=== PATIENT | female | born 1955 | race Caucasian/White ===

== ENCOUNTER → 2020-05-12 | Outpatient (CLI) | payer BC, OTHER ==
[~2020-05-12] MED LIST: CALTRATE 600 +1 EAC1 PO; CRESTOR10 MG PO; DIOVAN160 MG PO; FENOFIBRATE PO; FOLIC ACID PO; GLIPIZIDE5 MG PO; IRON PO; JARDIANCE10 MG PO; MAGNESIUM PO; METFORMIN HCL500 MG PO; METOPROLOL TART25 MG PO; VASCEPA1 GM PO; VITAMIN D PO
== END ==
LOC: RAD 05:00 → EDSTATUS 05-15 09:00
PROVIDERS: ATTEND Internal Medicine Gastroenterology
DX: Z01.818 Encounter for other preprocedural examination (principal); Z12.11 Encounter for screening for malignant neoplasm of colon; Z86.010 Personal history of colon polyps; R19.7 Diarrhea, unspecified; Z53.8 Procedure and treatment not carried out for other reasons; Z11.59 Encounter for screening for other viral diseases
CPT/HCPCS: 93005; U0002

== ENCOUNTER → 2020-08-14 | Day surgery (SDC) | payer BC, OTHER ==
[~2020-08-14] MED LIST changes: +EPHEDRINE SULFATE INJ 50 MG/ML VIAL ONE; +FENTANYL CITRATE/PF 100MCG/2 ML INJ ONE; +LIDOCAINE HCL 2% LOCAL INJ 5 ML SDV VIAL INJ ONE; +MIDAZOLAM HCL 2 MG/2 ML VIAL ONE; +PROPOFOL IV EMULSION 10 MG/ML 20 ML VIAL ONE; +SIMETHICONE 40 MG/0.6 ML BTL ONE; +TRULICITY0.75 MG/0. SQ
[2020-08-14 11:10] VITALS: BP 119/68
--- NOTE | 2020-08-14 13:09 | Operative Report ---
DATE OF PROCEDURE: 08/14/2020 SURGEON: Ronald Porter MD PROCEDURE PERFORMED: Colonoscopy. PREOPERATIVE DIAGNOSIS: History of colon polyps. POSTOPERATIVE DIAGNOSIS: Colon polyps. PREOPERATIVE MEDICATIONS: Consisted of general anesthesia. DESCRIPTION OF PROCEDURE: Using an Latio video colonoscope was inserted in the patient's rectum and advanced without difficulty to the level of cecum. The colon was studied from that level back down to the rectum. In the proximal ascending colon was a 1 cm size adenomatous polyp, it was removed with electrical snare cautery. In the transverse colon we had a 4 mm benign polyp which was removed with hot biopsy forceps and down the sigmoid colon we had a 4 mm colonic polyp which was removed with hot biopsy forceps. The colonoscope was withdrawn from the patient's rectum and the procedure was ended. Ronald Porter MD SAF/MODL /[id number]
== END | disposition home or self-care (01) ==
LOC: OR 06:37
PROVIDERS: ATTEND Internal Medicine Gastroenterology
DX: Z12.11 Encounter for screening for malignant neoplasm of colon (principal); D12.2 Benign neoplasm of ascending colon; G47.33 Obstructive sleep apnea (adult) (pediatric); I10 Essential (primary) hypertension; E11.9 Type 2 diabetes mellitus without complications; K21.9 Gastro-esophageal reflux disease without esophagitis; E78.2 Mixed hyperlipidemia; E66.9 Obesity, unspecified; J30.1 Allergic rhinitis due to pollen; Z01.812 Encounter for preprocedural laboratory examination; Z11.59 Encounter for screening for other viral diseases; Z79.84 Long term (current) use of oral hypoglycemic drugs; Z68.41 Body mass index [BMI] 40.0-44.9, adult
CPT/HCPCS: 36415; 45384; 45385; 82948; J2001; J2250; J2704; J3010; U0002 ×2; 45378

== ENCOUNTER 2024-10-24 11:04 | Emergency (ER) | payer BC ==
[~2024-10-24] VITALS: Ht 162.6 cm; Wt 90.7 kg
[~2024-10-24 11:04] MED LIST changes: -EPHEDRINE SULFATE INJ 50 MG/ML VIAL ONE; -FENTANYL CITRATE/PF 100MCG/2 ML INJ ONE; -LIDOCAINE HCL 2% LOCAL INJ 5 ML SDV VIAL INJ ONE; -MIDAZOLAM HCL 2 MG/2 ML VIAL ONE; -PROPOFOL IV EMULSION 10 MG/ML 20 ML VIAL ONE; -SIMETHICONE 40 MG/0.6 ML BTL ONE
[2024-10-24 11:13] VITALS: PULSE 72; RESP 16; TEMP 97.7; O2SAT 98
[2024-10-24] MEDS: BENZONATATE 100 MG CAP PO STA (12:07)
[2024-10-24 12:19] LABS: BASOPHILS % 0.3 % (0.0-1.0); EOSINOPHILS # (AUTO) 0.1 (0.0-0.4); EOSINOPHILS % 0.8 % (0.0-6.0); HEMATOCRIT 37.5 % (34.2-44.1); HEMOGLOBIN 11.9 g/dL (12.0-16.0); LYMPHOCYTES # (AUTO) 2.4 (1.0-3.2); LYMPHOCYTES % 32.6 % (18.0-39.1); MEAN CORPUSCULAR HEMOGLOBIN 26.9 pg (28-32); MEAN CORPUSCULAR HGB CONC 31.7 g/dL (31-35); MEAN CORPUSCULAR VOLUME 84.7 fL (81-99); MONOCYTES # (AUTO) 0.5 (0.2-0.8); MONOCYTES % 6.4 % (4.4-11.3); NEUTROPHILS # (AUTO) 4.3 (2.1-6.9); NEUTROPHILS % 59.3 % (38.7-80.0); PLATELET COUNT 343 x10e3/uL (140-360); RED BLOOD COUNT 4.43 x10e6/uL (3.6-5.1); RED CELL DISTRIBUTION WIDTH 13.2 % (11.7-14.4); WHITE BLOOD COUNT 7.21 x10e3/uL (4.8-10.8)
[2024-10-24 12:36] LABS: ALBUMIN 3.2 g/dL (3.5-5.0); ALBUMIN/GLOBULIN RATIO 0.9 (0.8-2.0); BILIRUBIN,TOTAL 0.6 mg/dL (0.2-1.2); CALCIUM 9.6 mg/dL (8.4-10.2); CREATININE, SERUM 0.68 mg/dL (0.57-1.11); TOTAL PROTEIN 6.7 g/dL (6.5-8.1)
== END 2024-10-24 13:33 | disposition home or self-care (01) ==
LOC: ER 11:40
DX: R05.9 Cough, unspecified (principal); E11.65 Type 2 diabetes mellitus with hyperglycemia; I10 Essential (primary) hypertension; E78.5 Hyperlipidemia, unspecified; J45.909 Unspecified asthma, uncomplicated
CPT/HCPCS: 36415; 71046; 80053; 83880; 85025; 99284